=== PATIENT | male | born 1955 ===

== ENCOUNTER 2017-07-25 11:12 | Emergency (ER) | payer MEDICAID, OTHER ==
[2017-07-25 11:22] VITALS: O2SAT 100
[2017-07-25] MEDS ORDERED: Tmp-Smz 800 mg-160 mg DS Tab PO STA (12:04)
[2017-07-25] MEDS ORDERED: Tmp-Smz 800 mg-160 mg DS Tab ONE (12:34)
--- NOTE | 2017-07-25 12:41 | RAD ---
PROCEDURE: Radiographs of the right tibia and fibula. HISTORY: right talbert injury r/o fx COMPARISON: None available. TECHNIQUE: Frontal and lateral views obtained. FINDINGS: BONES: Bone alignment and mineralization are normal. There no displaced fracture or bone destruction. JOINT SPACES: Unremarkable. OTHER FINDINGS: There is irregular soft tissue defect in the proximal anterior talbert. IMPRESSION: Irregular soft tissue defect in the proximal anterior she most compatible with an open wound. No acute fracture or dislocation.
[2017-07-25] MEDS ORDERED: Bacitracin 500 Units/gm Oint Foilpak UD TOP ONE (13:16)
--- NOTE | 2017-07-25 13:19 | C.PDOC ---
History Of Present Illness 62 y/o male presents to the ED c/o right talbert pain associated with laceration that happened 2 weeks ago. The patient states he was sent here from a [place] clinic for his right lower leg evaluation . The patient states a box fell and hit his right talbert and caused a laceration. The patient states that the effected area is painful and has swelling . The patient denies drainage, fever, and calf tenderness. Time Seen by Provider: 07/25/17 11:31 Chief Complaint (Nursing): Lower Extremity Problem/Injury History Per: Patient Onset/Duration Of Symptoms: Days Current Symptoms Are (Timing): Still Present Additional History Per: Patient - Hip Description Of Injury: Other (box fell and hit his righ talbert) Past Medical History Reviewed: Historical Data, Nursing Documentation, Vital Signs Vital Signs: Last Vital Signs Temp 97.7 F 07/25/17 13:25 Pulse 89 07/25/17 13:25 Resp 18 07/25/17 13:25 BP 109/63 07/25/17 13:25 Pulse Ox 100 07/25/17 15:10 - Medical History PMH: Anemia, Hypercholesterolemia Denies: Chronic Kidney Disease Surgical History: No Surg Hx Family History: States: No Known Family Hx - Social History Hx Alcohol Use: Yes Hx Substance Use: No - Immunization History Hx Tetanus Toxoid Vaccination: No Hx Influenza Vaccination: No Hx Pneumococcal Vaccination: No Review Of Systems Except As Marked, All Systems Reviewed And Found Negative. Constitutional: Negative for: Fever Gastrointestinal: Negative for: Vomiting Musculoskeletal: Positive for: Leg Pain (right talbert ) Skin: Positive for: Other (laceration on the right talbert ). Negative for: Bruising Physical Exam - Physical Exam Appears: Non-toxic, No Acute Distress, Other (comfortbale ) Skin: Warm, Dry Head: Atraumatic, Normacephalic Eye(s): bilateral: Normal Inspection Oral Mucosa: Moist Neck: Supple Chest: Symmetrical Cardiovascular: Rhythm Regular Respiratory: Normal Breath Sounds, No Rales, No Rhonchi Gastrointestinal/Abdominal: Soft, No Tenderness, No Guarding, No Rebound Back: Normal Inspection Extremity: Normal ROM, Capillary Refill (2<sec. ), Other (right talbert vertical orientation proximal with 6-7cm surounding thicken skin no fluctuance, induration, and no purulent discharge) Neurological/Psych: Oriented x3, Normal Speech Gait: Steady ED Course And Treatment O2 Sat by Pulse Oximetry: 100 Progress Note: Right Tibia and Fibula X-ray was performed. Exams are negative for fracture. Upon reassessment, the patient is comfortable and ambulating with no cane. The patient is sent home with wound care and advised to have a follow up with the [facility]. Medical Decision Making Medical Decision Making: PROCEDURE: Radiographs of the right tibia and fibula. HISTORY: right talbert injury r/o fx COMPARISON: None available. TECHNIQUE: Frontal and lateral views obtained. FINDINGS: BONES: Bone alignment and mineralization are normal. There no displaced fracture or bone destruction. JOINT SPACES: Unremarkable. OTHER FINDINGS: There is irregular soft tissue defect in the proximal anterior talbert. IMPRESSION: Irregular soft tissue defect in the proximal anterior she most compatible with an open wound. No acute fracture or dislocation. Disposition Counseled Patient/Family Regarding: Studies Performed, Diagnosis, Need For Followup, Rx Given - Disposition Referrals: [facility] [Outside] [facility] [Outside] Disposition: HOME/ ROUTINE Disposition Time: 13:15 Condition: STABLE Additional Instructions: USE MEDICATIONS DIRECTED RETURN TO ER IF SYMPTOMS WORSEN FOLLOW UP IN MEDICAL CLINIC/WOUND CARE CLINIC IN 1-2 DAYS Prescriptions: Bacitracin OINT 1 applic TOP BID #1 tube Cephalexin [Keflex] 500 mg PO BID #14 capsule Sulfamethoxazole/Trimethoprim [Bactrim DS 800 mg-160 mg] 1 tab PO BID #14 tab Instructions: Acute Wound Care (ED) Forms: [employer] (Samoan) Print Language: NORTHERN IRISH - Clinical Impression Clinical Impression: Wound of right leg - Scribe Statement The provider has reviewed the documentation as recorded by the Scribe Ana Justin
[2017-07-25] MEDS ORDERED: Bacitracin 500 Units/gm Oint Foilpak UD ONE (13:20)
[2017-07-25 13:26] VITALS: BP 109/63; PULSE 89; RESP 18; TEMP 97.7
== END 2017-07-25 13:33 | disposition home or self-care (01) ==
LOC: C.ER 11:12
DX: S81.801A Unspecified open wound, right lower leg, initial encounter (principal); E78.00 Pure hypercholesterolemia, unspecified